=== PATIENT | female | born 1940 | race Hispanic/Latino ===

== ENCOUNTER 2017-01-19 09:03 | Outpatient (CLI) | payer MEDICARE ==
--- NOTE | 2017-01-22 07:38 | Vascular Lab Report ---
Lower extremity vein mapping Reason for exam: Preoperative evaluation for lower extremity bypass conduit. Comments: On the right, the greater saphenous vein is marginal from the ankle to the knee. On the right, the greater saphenous vein is usable from the knee to the hip. On the left, the greater saphenous vein is marginal from the ankle to the knee. On the left, the greater saphenous vein is usable from the knee to the hip. Impression: On the right, the greater saphenous vein is usable from the knee to the hip. Marginal below knee On the left, the greater saphenous vein is usable from the knee to the hip. Marginal below knee.
== END 2017-01-19 09:04 | disposition home or self-care (01) ==
LOC: VAS 09:03
PROVIDERS: ATTEND Radiology Diagnostic Radiology
DX: Z01.818 Encounter for other preprocedural examination (principal); I70.211 Atherosclerosis of native arteries of extremities with intermittent claudication, right leg; I65.23 Occlusion and stenosis of bilateral carotid arteries; E11.9 Type 2 diabetes mellitus without complications; I10 Essential (primary) hypertension; Z87.891 Personal history of nicotine dependence
CPT/HCPCS: 93970

== ENCOUNTER 2017-02-07 06:51 | Day surgery (SDC) | payer MEDICARE ==
[~2017-02-07 06:51] MED LIST: ANCEF/STERILE WATER 2 GM/20 ML 2 GM/20 ML SYRINGE IV NR; NACL 0.9% 1000 ML 1,000 ML IV SCH
[2017-02-07 07:49] LABS: Basophils % (Auto) 0.5 % (0.0-1.8); Eosinophils % (Auto) 3.4 % (0.0-4.3); Hematocrit 32.4 % (30.3-42.9); Hemoglobin 10.8 gm/dl (10.1-14.3); Mean Corpuscular HGB Conc 34 % (30-34); Mean Corpuscular Hemoglobin 30 pg (28-32); Mean Corpuscular Volume 88 fl (79-97); Platelet Count 152 K/mm3 (140-440); Red Blood Count 3.68 M/mm3 (3.65-5.03); Red Cell Distribution Width 16.3 % (13.2-15.2); White Blood Count 6.3 K/mm3 (4.5-11.0)
[2017-02-07 08:02] LABS: Anion Gap 18 mmol/L; BUN/Creatinine Ratio 25.55; Blood Urea Nitrogen 23 mg/dL (7-17); Calcium 9.3 mg/dL (8.4-10.2); Carbon Dioxide 24 mmol/L (22-30); Chloride 102.5 mmol/L (98-107); Glucose 160 mg/dL (65-100); Potassium 4.2 mmol/L (3.6-5.0); Sodium 140 mmol/L (137-145)
[2017-02-07] MEDS ORDERED: HEPARIN 10,000 UNITS/10 ML ONE (08:30)
[2017-02-07] MEDS ORDERED: ANCEF/STERILE WATER 2 GM/20 ML 2 GM/20 ML SYRINGE IV ONE (08:30)
[2017-02-07] MEDS ORDERED: SUBLIMAZE ONE (08:30)
[2017-02-07] MEDS ORDERED: VERSED ONE (08:30)
[2017-02-07] MEDS ORDERED: HEPARIN/NS 5000 UNIT/500ML(CATH LAB) 1,000 ML IR ONE (08:30)
[2017-02-07] MEDS ORDERED: XYLOCAINE 1%/ EPI 1:100,000 INFILTRATI ONE (09:34)
[2017-02-07] MEDS ORDERED: ZOFRAN ONE (11:07)
[2017-02-07 12:46] VITALS: BP 128/52
--- NOTE | 2017-02-07 14:28 | Operative Report ---
Operative Report Operative Report: Procedure: 1. Fluoroscopic guided puncture of a right superficial femoral artery stent. 2. Attempted crossing of an in-stent occlusion. Date of Procedure: 02/07/2017 History/Indication: This is a 76-year-old female with severe right leg claudication. She was found to have in-stent restenosis of a previously placed right superficial femoral artery stent. This was unsuccessfully crossed in the outpatient setting. She was then brought to the hospital at a later date for a direct stick attempt. Physician: Josué Reid MD Technique/Procedural Details: The patient was placed in the supine position on the procedure table and prepped and draped in the usual sterile fashion. A timeout was performed. Local anesthetic was administered along the medial right thigh. Using fluoroscopy, the mid superficial femoral artery stent was punctured with an 18- gauge needle. Positioning within the stent was confirmed by 2 oblique views. The needle was exchanged over a stiff Glidewire for an O35 [place] Blazer catheter. Multiple wires were used, including a V 18, Davenport advantage, Victory 30g wire, and stiff Glidewire, in an attempt to cross the proximal aspect of the occluded stent. After a prolonged efforts, all catheters and wires were withdrawn, and hemostasis was achieved with manual pressure. Sterile dressings were placed, and the patient was transported to the holding area in good condition. Discussion: Sonography performed prior to prepping and draping reveals no demonstrable color flow within the superficial femoral artery stent. There was successful access of the stent with fluoroscopic guidance, and intraluminal wire passage was confirmed with ultrasound. However, the proximal aspect of the stent was occluded with plaque that was too hard/firm for any wire to cross. Therefore, the patient may be a candidate for bypass surgery. She will follow-up with Dr. Downey in clinic next week. Specimen: None EBL: <5 cc
--- NOTE | 2017-02-08 16:43 | Vascular Lab Report ---
MISCELLANEOUS VESSEL IDENTIFICATION: COMMENTS ON THE SCAN: The right superficial femoral artery was identified and under real-time ultrasound guidance was cannulated. IMPRESSION: Successful ultrasound guided arterial cannulation.
== END 2017-02-07 13:05 | disposition home or self-care (01) ==
LOC: OPU 06:51
PROVIDERS: ATTEND Radiology Diagnostic Radiology
DX: I70.211 Atherosclerosis of native arteries of extremities with intermittent claudication, right leg (principal); I10 Essential (primary) hypertension; I65.23 Occlusion and stenosis of bilateral carotid arteries; E11.9 Type 2 diabetes mellitus without complications; Z86.79 Personal history of other diseases of the circulatory system; M19.90 Unspecified osteoarthritis, unspecified site; Z90.49 Acquired absence of other specified parts of digestive tract; Z90.5 Acquired absence of kidney; Z98.62 Peripheral vascular angioplasty status; Z96.652 Presence of left artificial knee joint; Z88.8 Allergy status to other drugs, medicaments and biological substances; Z88.5 Allergy status to narcotic agent; Z79.899 Other long term (current) drug therapy; Z79.4 Long term (current) use of insulin; Z80.9 Family history of malignant neoplasm, unspecified; Z82.49 Family history of ischemic heart disease and other diseases of the circulatory system
CPT/HCPCS: 36140; 36415; 75710; 76937; 80048; 85025; C1725; C1769; J0690; J1644; J2250; J2405; J3010; J7030; Q9967